=== PATIENT | male | born 1945 | race Caucasian/White ===

== ENCOUNTER 2018-01-30 21:28 | Emergency (ER) | payer OTHER ==
[~2018-01-30] VITALS: Ht 185.4 cm; Wt 93.0 kg
[2018-01-30] MEDS ORDERED: ALPRAZOLAM0.5 MG (21:46)
[2018-01-30] MEDS ORDERED: OMEPRAZOLE20 M1 (21:46)
[2018-01-30] MEDS ORDERED: TREXALL5 MG (21:46)
[2018-01-30] MEDS ORDERED: SIMVASTATIN40 MG (21:46)
== END 2018-01-30 23:31 | disposition home or self-care (01) ==
LOC: ER 21:28
DX: R33.8 Other retention of urine (principal); C61 Malignant neoplasm of prostate; C67.9 Malignant neoplasm of bladder, unspecified